=== PATIENT | female | born 1950 | race Caucasian/White ===

== ENCOUNTER → 2017-06-23 | Outpatient (CLI) | payer BC ==
[2016-08-23 10:50] VITALS: BP 140/80
[~2017-06-23] MED LIST: ALBU2.5V14 NEB; ASPI-630 PO; CHOL200024 PO; LEVO175T5 PO; LOSA1TAB17 PO; MULT1TAB52 PO; NAPR220C4 PO; NIAC500C PO; OMEG1CAP6 PO; TIOT4MIS3 IH
--- NOTE | 2017-06-23 15:43 | KCIC ---
MRI right knee without contrast dated 06/23/2017 2:45 PM Indication: Right knee pain , history of prior surgery 10 years ago. Pain for 2 months, pain started after doing yard work Comparison: No comparison is available. Technique: Routine multiplanar multisequence imaging performed. No contrast administered. Findings: Moderate to severe tricompartmental hypertrophic change with prominent marginal osteophytes. Thinning and surface irregularity of the articular cartilage throughout. Full-thickness cartilage loss over the weightbearing surfaces medial femoral condyle and medial tibial plateau. Full-thickness cartilage loss is also noted at the medial and lateral patellar facet and medial and lateral femoral trochlea. Moderate size joint effusion. No significant popliteal cyst. Small loose bodies of the posterior joint space measure up to 5 mm maximum dimension.. There is some heterogeneous geographic signal abnormality within the marrow of the distal femoral diametaphysis, nonspecific. Marrow signal is otherwise homogeneous. Anterior cruciate and posterior cruciate ligaments are intact. Medial and lateral collateral complexes are intact. Iliotibial band, popliteus tendon and pes anserine complex within normal limits. Quadriceps and patellar tendon are intact. No abnormality of the medial or lateral retinaculum. There is blunted morphology of the posterior horn and body of medial meniscus. There is a small free edge radial tear of the medial meniscal body. There is also a small horizontal oblique tear at the posterior horn. Lateral meniscus is normal in morphology and signal. IMPRESSION: 1. 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 There is full-thickness cartilage loss of the anterior and medial compartments. 2. Complex tear posterior horn/body of medial meniscus. 3. Moderate size joint effusion with small loose bodies of the posterior joint space. 4. Geographic signal abnormality within the distal femoral diametaphysis, nonspecific. This could be related to red marrow conversion. Infiltrative marrow processes are not excluded. Electronically signed by: Moises Vicente MD (06/23/2017 3:40 PM) [id number]
--- NOTE | 2017-06-23 16:18 | KCIC ---
MRI left knee without contrast dated 06/23/2017 3:30 PM Indication: Left knee pain , pain for 2 months , pain started after doing yard work, pain Comparison: No comparison is available. Technique: Routine multiplanar multisequence imaging performed. No contrast administered. Findings: Moderate tricompartmental hypertrophic change with small marginal osteophytes. Thinning and surface irregularity of the articular cartilage throughout. Full-thickness cartilage loss over the weightbearing surfaces medial femoral condyle and medial tibial plateau. There is also full-thickness cartilage loss of the medial patellar facet and lateral patellar facet and medial and lateral femoral trochlea. Small joint effusion. Small popliteal cyst. No intra-articular loose body. There is a small rounded focus of T2 signal abnormality within the distal femoral metaphysis on the medial side with similar-appearing signal abnormality at the anterior femoral diaphysis. Anterior cruciate and posterior cruciate ligaments are intact. Medial and lateral collateral complexes are intact. Iliotibial band, popliteus tendon and pes anserine complex within normal limits. Quadriceps and patellar tendon are intact. No abnormality of the medial or lateral retinaculum. Mild patchy superficial infrapatellar edema, nonspecific. Horizontal oblique tear posterior horn and body of medial meniscus. There is blunting of the free edge the medial meniscal body which appears to be extruded into the medial gutter. There is also blunting of the free edge of the medial meniscal root. Lateral meniscus is normal in morphology and signal. IMPRESSION: 1. Moderate tricompartmental degenerative arthrosis and chondromalacia. Full-thickness cartilage loss at the medial and anterior compartments. 2. Complex tears posterior horn and body of medial meniscus 3. Small joint effusion and small popliteal cyst. 4. Areas of signal abnormality in the distal femoral diaphysis and metaphysis, nonspecific. This could be related to red marrow conversion. Infiltrative marrow processes cannot be excluded. Recommend clinical correlation. Electronically signed by: Moises Vicente MD (06/23/2017 4:14 PM) [id number]
== END | disposition home or self-care (01) ==
LOC: KCIC MRI 14:17
PROVIDERS: ATTEND Physician Assistant Medical
DX: M17.0 Bilateral primary osteoarthritis of knee (principal); M25.462 Effusion, left knee; M25.461 Effusion, right knee; M71.22 Synovial cyst of popliteal space [Baker], left knee; M71.21 Synovial cyst of popliteal space [Baker], right knee
CPT/HCPCS: 73721